=== PATIENT | female | born 1965 | race Caucasian/White ===

== ENCOUNTER → 2022-04-11 | Outpatient (CLI) | payer BC ==
--- NOTE | 2022-04-11 13:56 | US ---
EXAMINATION TYPE: US kidneys/renal and bladder DATE OF EXAM: 04/11/2022 COMPARISON: NONE CLINICAL HISTORY: I73.9 PERIPHERAL VASCULAR DISEASE,I13.0 HYP HRT . EXAM MEASUREMENTS: Right Kidney: 9.8 x 4.3 x 4.6 cm Left Kidney: 11.2 x 5.6 x 5.0 cm Right Kidney: mild hydronephrosis Left Kidney: mild hydronephrosis Bladder: wnl Mild bilateral hydronephrosis. No definitive nephrolithiasis identified. No solid contour deforming m ass. Urinary bladder appears anechoic and within normal limits. IMPRESSION: Mild bilateral hydronephrosis. No visualized obstructing calculus.
--- NOTE | 2022-04-13 08:49 | US ---
EXAMINATION TYPE: US arterial LE single level DATE OF EXAM: 04/11/2022 1:24 PM CLINICAL HISTORY: I73.9 PERIPHERAL VASCULAR DISEASE,I13.0 HYP HRT . Very light cramping for one year . Numbness and coldness bilateral feet. History of: Smoker: yes Hypertension: no Diabetic: no Hyperlipidemia: yes TIA/CVA: no Previous Vascular Surgery: no Patient complains of severe night time leg cramping, the bottom of her feet are numb and her feet are cold. Doppler Waveforms: Right: Biphasic Left: Biphasic Right Brachial Pressure: 124 Left Brachial Pressure: 120 Ankle-Brachial Indices: Right: 1.14 Left: 1.16 Toe Brachial Indices: Right: waveform not detected Left: 0.64 IMPRESSION: Normal bilateral DONNA and left-sided TBI values. Cannot exclude peripheral arterial disea se in the right foot. Follow-up advised.
== END | disposition home or self-care (01) ==
LOC: RADUSWWP 12:14
PROVIDERS: ATTEND Internal Medicine
DX: I13.0 Hypertensive heart and chronic kidney disease with heart failure and stage 1 through stage 4 chronic kidney disease, or unspecified chronic kidney disease (principal); I73.9 Peripheral vascular disease, unspecified; N18.9 Chronic kidney disease, unspecified; I50.9 Heart failure, unspecified; E78.5 Hyperlipidemia, unspecified; N13.30 Unspecified hydronephrosis; Z79.890 Hormone replacement therapy; Z87.891 Personal history of nicotine dependence
CPT/HCPCS: 76770; 93922

== ENCOUNTER → 2023-01-17 | Outpatient (CLI) | payer BC ==
--- NOTE | 2023-01-17 14:50 | XR ---
EXAMINATION TYPE: XR Hip Bilateral and AP pelvis DATE OF EXAM: 01/17/2023 COMPARISON: NONE HISTORY: Pain TECHNIQUE: A single AP view of the pelvis is obtained. Two views of the bilateral hip are obtained. FINDINGS: There is no acute fracture/dislocation evident in the pelvis. Hypertrophic arthropathy of the SI joints and mild arthropathy of bilateral hip joints. Spurring along the greater trochanter gre ater on the left can be associated with trochanteric bursitis.. The overlying soft tissue appears un remarkable. IMPRESSION: 1. There is no acute fracture or dislocation in the pelvis or bilateral hip. There is high clinical suspicion for fracture or difficulty with weightbearing then a CAT scan should be obtained. 2. Mild bilateral hip arthropathy. 3. Spurring of the greater trochanter greater on the left can be associated with trochanteric bursiti s.
--- NOTE | 2023-01-17 14:53 | XR ---
EXAM TYPE: LUMBAR SPINE X RAY SERIES COMPARISON: NONE HISTORY: pain TECHNIQUE: 4 views are submitted. FINDINGS: Alignment is anatomic. The pedicles are intact. The transverse processes are intact. There is no s pondylolysis or spondylolisthesis. Moderate multilevel hypertrophic and degenerative disc disease. Facet arthropathy lower lumbar spine with bilateral foraminal encroachment. Vascular calcifications n oted. IMPRESSION: 1. Multilevel moderate hypertrophic and degenerative disc disease. Facet arthropathy lower lumbar spi ne.
== END | disposition home or self-care (01) ==
LOC: RADXRMAIN 13:38
PROVIDERS: ATTEND Internal Medicine
DX: M53.3 Sacrococcygeal disorders, not elsewhere classified (principal); M16.0 Bilateral primary osteoarthritis of hip; M70.62 Trochanteric bursitis, left hip; M51.36 Other intervertebral disc degeneration, lumbar region; M47.816 Spondylosis without myelopathy or radiculopathy, lumbar region
CPT/HCPCS: 72110; 73521

== ENCOUNTER → 2023-05-26 | Outpatient (CLI) | payer BC ==
--- NOTE | 2023-05-26 11:19 | CT ---
EXAMINATION TYPE: CT brain cspine wo con DATE OF EXAM: 05/26/2023 COMPARISON: None available. HISTORY: Fall with head and neck pain. CT DLP: 1529 mGycm Automated exposure control for dose reduction was used. TECHNIQUE: CT scan of the head and cervical spine are performed without contrast. FINDINGS: There is no acute intracranial hemorrhage, mass effect, or midline shift identified. The ventricles and sulci are within normal limits in size. The globes are intact and the visualized sin uses are clear. Cervical spine is visualized in its entirety from C1 through upper thoracic levels and demonstrates s atisfactory alignment without evidence of acute fracture or dislocation. Prevertebral soft tissue ap pears within normal limits. The C1-C2 articulation is unremarkable. Scattered mild degenerative dis c changes are seen throughout the spine. IMPRESSION: 1. There is no acute fracture or dislocation evident in the cervical spine. 2. No acute intracranial hemorrhage, mass effect, or midline shift is seen.
== END | disposition home or self-care (01) ==
LOC: RADCTMAIN 10:15
PROVIDERS: ATTEND Internal Medicine
DX: S09.90XA Unspecified injury of head, initial encounter (principal); M54.2 Cervicalgia; X58.XXXA Exposure to other specified factors, initial encounter
CPT/HCPCS: 70450; 72125

== ENCOUNTER → 2024-01-31 | Outpatient (CLI) | payer BC ==
[2024-01-31 18:52] LABS: Creatine Kinase 92 U/L (26-186)
[2024-01-31 19:35] LABS: C Reactive Protein <0.30 mg/dL (0.00-0.80)
[2024-02-01 14:38] LABS: Protein, Total 7.3 g/dL (6.2-8.2)
== END | disposition home or self-care (01) ==
LOC: LABWHC1 13:33
PROVIDERS: ATTEND Psychiatry & Neurology Neurology
DX: G62.9 Polyneuropathy, unspecified (principal)
CPT/HCPCS: 36415; 82550; 82607; 82747; 84165; 84207; 86140; 86334; 86618

== ENCOUNTER → 2024-03-18 | Outpatient (CLI) | payer BC ==
--- NOTE | 2024-03-18 16:23 | CTL ---
EXAMINATION TYPE: CT Low Dose Lung DATE OF EXAM ORDERED: 03/18/2024 COMPARISON: None CLINICAL INDICATION: Female, 58 years old with history of Z12.2, F17.20; PHH, Former smoker, 1 ppd x 44 years., Lung cancer screening, History of Smoking/tobacco use. TECHNIQUE: Low dose computed tomography scan was performed through the chest at 1 mm thick sections a nd reconstructed images in multiple planes at 1 mm and [address] DLP: 78.[address] CTDI: 2.2 mGy Automated exposure control for dose reduction was used. CT DIAGNOSTIC QUALITY: Satisfactory FINDINGS: Nodules: Few scattered sub-5 mm pulmonary nodular densities. Example includes a right upper lobe 3 mm pulmonar y nodule (series 4, image 63). Additional right lower lobe calcified 3 mm granuloma. LUNGS: COPD: Severity: None Fibrosis: Severity: None Lymph nodes: None Other findings: None RIGHT PLEURAL SPACE: Effusion: None Calcification: None Thickening: None Pneumothorax: None LEFT PLEURAL SPACE: Effusion: None Calcification: None Thickening: None Pneumothorax: None HEART: Heart Size: Normal Coronary Calcification: Small Pericardial Effusion: None OTHER FINDINGS: Upper abdomen: None Bony thorax: Mild multilevel degenerative disc disease. Supraclavicular region: None Other: None IMPRESSION: Few scattered sub-5 [address] nod[address] densities. CT LUNG RAD AND CT CHEST RECOMMENDATION: Lung-Rad 2 Benign Appearance or Behavior: Continue annual sc reening with LDCT in 12 months. S Modifier (other clinically significant findings): None [facility], , 03/18/2024 4:21 PM
--- NOTE | 2024-03-19 08:33 | US ---
EXAMINATION TYPE: US carotid duplex BILAT DATE OF EXAM: 03/18/2024 COMPARISON: NONE CLINICAL INDICATION: Female, 58 years old with history of I65.23 CAROTID STENOSIS; heavy vape user Additional History: .... TECHNIQUE: Grayscale, color Doppler and spectral Doppler evaluation of the bilateral carotid systems and vertebral arteries. Indirect Doppler criteria was utilized. FINDINGS: EXAM MEASUREMENTS: RIGHT: Peak Systolic Velocity (PSV) cm/sec ----- Right CCA: 81.7 ----- Right ICA: 96.4 ----- Right ECA: 96.4 ICA/CCA ratio: 1.2 RIGHT: End Diastole cm/sec ----- Right CCA: 22.1 ----- Right ICA: 33.1 ----- Right ECA: 19.7 LEFT: Peak Systolic Velocity (PSV) cm/sec ----- Left CCA: 79.5 ----- Left ICA: 93.7 ----- Left ECA: 92.3 ICA/CCA ratio: 1.2 LEFT: End Diastole cm/sec ----- Left CCA: 24.2 ----- Left ICA: 35.3 ----- Left ECA: 16.5 VERTEBRALS (direction of flow): Right Vertebral: Antegrade Left Vertebral: Antegrade Rhythm: Normal CUSHION MAKER NOTES: No elevated velocities, plaque or significant stenosis seen Color Doppler imaging shows patency with blood flow throughout the carotid artery. Spectral waveforms are within normal limits. IMPRESSION: No hemodynamically significant internal carotid artery stenosis on either side. Criteria for Assigning % of Stenosis / Diameter reduction (Estimation based on the indirect measurements of the internal carotid artery velocities (ICA PSV). 1. Normal (no stenosis)=ICA PSV < 125 cm/s: ratio < 2.0: ICA EDV<40 cm/s. 2. Less than 50% stenosis=ICA PSV < 125 cm/s: ratio < 2.0: ICA EDV<40 cm/s. 3. 50 to 69% stenosis=ICA PSV of 125 to 230 cm/s: ration 2.0 ? 4.0: ICA EDV 40-100 cm/s. 4. Greater than 70% stenosis to near occlusion= ICA PSV > 230 cm/s: ratio > 4.0: ICA EDV > 100 cm/s. 5. Near occlusion= ICA PSV velocities may be low or undetectable: variable ratio and ICA EDV. 6. Total occlusion=unable to detect flow. [facility], , 03/19/2024 8:31 AM
--- NOTE | 2024-03-19 08:51 | MM ---
Reason for Exam: Screening (asymptomatic). Last mammogram was performed 3 year(s) and 3 month(s) ago. Patient History: Menarche at age 12. First Full-Term at age 17. Postmenopausal. 07/26/2011, Benign Excisional Biopsy on the left side. Mother had breast cancer, age 65. Risk Values: Lucia 5 year model risk: 2.9%. NCI Lifetime model risk: 16.1%. Prior Study Comparison: 06/15/2017 Bilateral Screening Mammogram, [facility] . 10/18/2018 Bilateral Screening Mammogram, [facility] . 11/10/2020 Bilateral Screening Mammogram, [facility] . 12/28/2020 Right Diagnostic Mammogram, [facility] . Tissue Density: The breasts are heterogeneously dense, which may obscure small masses. Findings: Analyzed By CAD. Right breast: Asymmetry CC view retroareolar region laterally. Anterior depth approximately 3.3 cm from the nipple. Left breast: There is no suspicious group of microcalcifications or new suspicious mass. Overall Assessment: Incomplete: need additional imaging evaluation, BI-RAD 0 Management: Diagnostic Mammogram of the right breast. [facility] will attempt to contact patient to return for supplemental views and ultrasound if indicated. Patient should continue monthly self-breast exams. A clinical breast exam by your physician is recommended on an annual basis. This exam should not preclude additional follow-up of suspicious palpable abnormalities. Note on Lucia scores and lifetime risk: 1. A Lucia score greater than 3% is considered moderate risk. If this is the case, consider specialist referral to assess eligibility for a risk reducing agent. 2. If overall lifetime risk for the development of breast cancer is 20% or higher, the patient may qualify for future screening with alternating mammogram and breast MRI. [facility], , 03/19/2024 8:48 AM. Electronically signed and approved by: Carl Zheng DO
--- NOTE | 2024-03-19 11:45 | BD ---
EXAMINATION TYPE: Axial Bone Density DATE OF EXAM: 03/18/2024 CLINICAL HISTORY: 58 years old Female. ICD-10 CODE: M85.851 OSTEOPENIA , Additional History: Height: 64 Weight: 143.7 FRAX RISK QUESTIONS: Alcohol (3 or more units per day): no Family History (Parent hip fracture): no Glucocorticoids (More than 3mos): no (Ex: prednisone, prednisolone, methylprednisolone, dexamethasone, and hydrocortisone). History of Fracture in Adulthood: no Secondary Osteoporosis: 1. Type 1 Diabetes: no 2. Hyperthyroidism: no 3. Menopause before 45: no 4. Malnutrition: no 5. Chronic liver disease: no Rheumatoid Arthritis: no Current Tobacco Use: no RISK FACTORS HISTORY OF: Surgery to Spine/Hip(right/left)/Wrist (right/left): no EXAM MEASUREMENTS: Bone mineral densitometry was performed using the [employer]. Bone mineral density as measured about the Lumbar spine is: ----- L1-L4(G/cm2): 1.134 T Score Values are as follows: ----- L1: -0.6 ----- L2: -1.7 ----- L3: -0.65 ----- L4: -0.9 ----- L1-L4: -0.4 Z Score Values are as follows: ----- L1: 0.4 ----- L2: -0.6 ----- L3: 0.5 ----- L4: 1.9 ----- L1-L4: 0.7 Bone mineral density : baseline Bone mineral density about the R hip (g/cm2): 0.955 Bone mineral density about the L hip (g/cm2): 0.961 T Score values are as follows: -----R Neck: -0.9 -----L Neck: -1.1 -----R Total: -0.4 -----L Total: -0.4 Z Score values are as follows: -----R Neck: 0.3 -----L Neck: 0.1 -----R Total: 0.4 -----L Total: 0.4 Bone mineral density : baseline FRAX%s: The graph provided illustrates a 6.7% chance for a major osteoporotic fx and a 0.4% chance fo r the hips probability for fx in 10 years time. IMPRESSION: Osteopenia (T Score between -2.5 and -1). There is slightly increased risk of fracture and the patient may be considered for treatment. Re-Screen 2-5 years. NOTE: T-SCORE=SD OF THE YOUNG ADULT MEAN. [facility], , 03/19/2024 11:43 AM
== END | disposition home or self-care (01) ==
LOC: RADMAMWWP 15:03
PROVIDERS: ATTEND Internal Medicine
DX: Z12.31 Encounter for screening mammogram for malignant neoplasm of breast (principal); Z12.2 Encounter for screening for malignant neoplasm of respiratory organs; M85.851 Other specified disorders of bone density and structure, right thigh; I65.23 Occlusion and stenosis of bilateral carotid arteries; Z78.0 Asymptomatic menopausal state; Z80.3 Family history of malignant neoplasm of breast; R92.333 Mammographic heterogeneous density, bilateral breasts; M85.89 Other specified disorders of bone density and structure, multiple sites; F17.210 Nicotine dependence, cigarettes, uncomplicated; J98.4 Other disorders of lung
CPT/HCPCS: 71271; 77063; 77067; 77080; 93880

== ENCOUNTER → 2024-03-27 | Outpatient (CLI) | payer BC ==
--- NOTE | 2024-03-27 10:53 | MM ---
Reason for Exam: Additional evaluation requested from abnormal screening. Last screening mammogram was performed less than 1 month ago. Patient History: Menarche at age 12. First Full-Term at age 17. Postmenopausal. 07/26/2011, Benign Excisional Biopsy on the left side. Mother had breast cancer, age 65. Risk Values: Lucia 5 year model risk: 2.9%. NCI Lifetime model risk: 16.1%. Tissue Density: Right: The breasts are heterogeneously dense, which may obscure small masses. Findings: Analyzed By CAD. No suspicious new mass is identified on additional views. Overall Assessment: Negative, BI-RAD 1 Management: Screening Mammogram of both breasts in 1 year. Return to routine follow-up. Results were given to the patient verbally at the time of exam. Patient should continue monthly self-breast exams. A clinical breast exam by your physician is recommended on an annual basis. This exam should not preclude additional follow-up of suspicious palpable abnormalities. Note on Lucia scores and lifetime risk: 1. A Lucia score greater than 3% is considered moderate risk. If this is the case, consider specialist referral to assess eligibility for a risk reducing agent. 2. If overall lifetime risk for the development of breast cancer is 20% or higher, the patient may qualify for future screening with alternating mammogram and breast MRI. [facility], , 03/27/2024 10:50 AM. Electronically signed and approved by: Oleg Herman M.D.
== END | disposition home or self-care (01) ==
LOC: RADMAMWWP 10:15
PROVIDERS: ATTEND Internal Medicine
DX: R92.8 Other abnormal and inconclusive findings on diagnostic imaging of breast (principal); Z78.0 Asymptomatic menopausal state; Z80.3 Family history of malignant neoplasm of breast; R92.331 Mammographic heterogeneous density, right breast
CPT/HCPCS: 77061; 77065